=== PATIENT | male | born 1980 | race Caucasian/White ===

== ENCOUNTER 2020-09-13 21:33 | Emergency (ER) | payer BC ==
[2020-09-13 22:00] LABS: HEMOGLOBIN 15.3 gm/dl (14.0-17.5); RED BLOOD COUNT 5.38 M/UL (4.20-5.50); WHITE BLOOD COUNT 9.1 K/UL (4.5-11.0)
[2020-09-13 22:19] LABS: BUN/CREATININE RATIO 18 (0-10)
[2020-09-28] MEDS ORDERED: GOODY'S EX-STR1 EAC1 PO (06:57)
[2020-09-28] MEDS ORDERED: NEXIUM20 MG PO (06:57)
== END 2020-09-14 02:27 | disposition home or self-care (01) ==
LOC: ER1 21:33
PROVIDERS: Physician Assistant
DX: R04.2 Hemoptysis (principal); F17.210 Nicotine dependence, cigarettes, uncomplicated; Z86.14 Personal history of Methicillin resistant Staphylococcus aureus infection; Z20.822 Contact with and (suspected) exposure to COVID-19
CPT/HCPCS: 0240U; 71045; 80053; 85025; 85379; 85610; 85730; 99284; Q9967

== ENCOUNTER → 2020-09-28 | Day surgery (SDC) | payer BC ==
[~2020-09-28] MED LIST: GOODY'S EX-STR1 EAC1 PO; NEXIUM20 MG PO
== END | disposition home or self-care (01) ==
LOC: OR 06:31
DX: R04.2 Hemoptysis (principal); R23.3 Spontaneous ecchymoses; F17.210 Nicotine dependence, cigarettes, uncomplicated; K21.9 Gastro-esophageal reflux disease without esophagitis; Z88.0 Allergy status to penicillin; Z88.2 Allergy status to sulfonamides; Z88.8 Allergy status to other drugs, medicaments and biological substances; Z79.82 Long term (current) use of aspirin; Z79.899 Other long term (current) drug therapy
CPT/HCPCS: J2250; J2704; J7120